=== PATIENT | male | born 1985 | race Caucasian/White ===

== ENCOUNTER 2019-12-24 07:58 | Emergency (ER) | payer SELFPAY ==
[2019-12-24] MEDS ORDERED: LORazepam 2 MG/ML SDV IVPUSH ONE (08:13)
--- NOTE | 2019-12-24 08:18 | EDM.PDOC ---
ED HPI GENERAL MEDICAL PROBLEM - General Chief Complaint: Drug or Alcohol Abuse Stated Complaint: [facility] Time Seen by Provider: 12/24/19 08:05 Source of Information: Reports: Patient History Limitations: Reports: No Limitations - History of Present Illness INITIAL COMMENTS - FREE TEXT/NARRATIVE: 34-year-old male presents to the ED per [facility]. Apparently police were on scene due to his bizarre behavior and activity. It is clear that he is intoxicated by drugs or alcohol or both. There was no a ability to reason with the patient. He was disoriented to time and place. Speaking very fast. Feeling very hot flushed and anxious. Paramedics suggested that he has been taking methamphetamines and possible LSD. There were no track dwyer to suggest intravenous drug abuse. No useful history could be gleaned from the patient due to his severely intoxicated and agitated state. Onset: Unknown/Unsure (Unknown how long he has been partying hard. He would not answer when he last ate.) Onset Date: 12/24/19 (Reported by neighbors to be outside throwing [employer] [place] the city outside [place] home or apartment) Duration: Other (Unknown) Location: Reports: Other (Signs and symptoms of severe intoxication by stimulant hallucinogenic medications.) Quality: Reports: Other (Intoxicated by stimulants) Severity: Severe (.) Improves with: Reports: None Worsens with: Reports: None Context: Reports: Other (Suspect stimulant ingestion). Denies: Activity, Exercise, Lifting, Sick Contact, Trauma Associated Symptoms: Reports: Confusion ( likely methamphetamines.), Diaphoresis. Denies: Chest Pain, Cough, cough w sputum, Malaise, Syncope Treatments [employer] MEMBER: Reports: Other (see below) (Paramedics were not able to establish an IV on him.) - Related Data Allergies Allergy/AdvReac Type Severity Reaction Status Date / Time amoxicillin Allergy Hives Verified 02/23/15 18:20 Past Medical History - History Comment History Comment: Polysubstance abuse.Apparently has a history of Social & Family History - Living Situation & Occupation Living situation: Reports: Single Occupation: Unemployed ED ROS GENERAL - Review of Systems Review Of Systems: See Below Constitutional: Reports: Diaphoresis. Denies: Fever, Chills HEENT: Reports: No Symptoms Respiratory: Reports: No Symptoms Cardiovascular: Reports: No Symptoms Endocrine: Reports: No Symptoms GI/Abdominal: Reports: Anorexia. Denies: Nausea, Vomiting : Reports: No Symptoms Musculoskeletal: Reports: No Symptoms Skin: Reports: Other (Has abrasions and erythema to both knees as if he has been crawling or fell down.) Neurological: Reports: Confusion (Patient is confused and agitated). Denies: Difficulty Walking ( and provides only bits and pieces of information.) Psychiatric: Reports: Agitation, Hallucinations (Severe. Appears to be hallucinating) Hematologic/Lymphatic: Reports: No Symptoms - Physical Exam Exam: See Below Exam Limited By: Other (Temperature is 36.6 although he is hot to touch and diaphoretic. Heart rate 114 and sinus respiratory of 20 with O2 sats of 98% room air BP elevated at 145 119.) General Appearance: Alert, Other (Significantly agitated and confused disoriented to time and place.) Eye Exam: Bilateral Eye: Conjunctival Injection (Mild conjunctival injection bilaterally.), Normal Inspection (Pupils are dilated to 8 mm bilaterally.), PERRL Nose: Normal Inspection Throat/Mouth: Normal Inspection, Normal Lips, Normal Teeth, Normal Oropharynx, Other (Tongue is dry and coated.) Head Exam: Atraumatic, Normocephalic, Other (There are no outward signs of head or facial trauma.) Neck: Normal Inspection, Supple, Non-Tender, Full Range of Motion. No: Lymphadenopathy (L), Lymphadenopathy (R) Respiratory/Chest: Lungs Clear, Normal Breath Sounds (Tachypneic at rest.), No Accessory Muscle Use, Respiratory Distress Cardiovascular: Normal Peripheral Pulses, No Edema, No Gallop, No Murmur, No Rub, Tachycardia (Sinus tachycardia at the bedside.) GI/Abdominal: Soft, Non-Tender (Bowel sounds very quiesced sent.), No Organomegaly, No Mass, Pelvis Stable, Abnormal Bowel Sounds, Other (Mildly obese.) Neuro Exam (Abbreviated): Alert, CN II-XII Intact, Normal Gait, No Motor/Sensory Deficits. No: Oriented, Normal Cognition Back Exam: Normal Inspection, Full Range of Motion, Other (No outward signs of any back thoracic or lumbar spine trauma.) Extremities: Other (Diffuse erythema over both anterior knees as if he has been crawling or on his knees for a lengthy period of time. No ecchymoses.) Psychiatric: Anxious ( and anxious.), Other (Agitated). No: Normal Affect, Normal Mood Skin Exam: Warm, Dry, Intact, Other (Flushed facies.) EKG INTERPRETATION EKG Date: 12/24/19 Time: 09:15 Rhythm: NSR Rate (Beats/Min): 96 [place]: Normal P-Wave: Present (P wave inverted in leads V1 and V2 but no evidence of ectopic atrial arrhythmia.) QRS: Other (There are Q waves in leads V1 and V2 consider old anteroseptal myocardial infarction.) ST-T: Other (Diffuse early repolarization pattern.) QT: Prolonged (Minimally prolonged.) EKG Interpretation Comments: Abnormal ECG. Course - Vital Signs Last Recorded V/S: Last Vital Signs Temp 36.6 C 12/24/19 08:04 Pulse 114 H 12/24/19 08:04 Resp 20 12/24/19 08:04 BP 145/119 H 12/24/19 08:04 Pulse Ox 98 12/24/19 08:04 - Orders/Labs/Meds Orders: Active Orders 24 hr Category Date Time Status DRUG SCREEN, URINE [URCHEM] Stat Lab 12/24/19 08:17 Ordered Labs: Laboratory Tests 12/24/19 12/24/19 12/24/19 Range/Units 08:25 08:25 08:25 WBC 12.20 H (4.23-9.07) K/mm3 RBC 4.87 (4.63-6.08) M/mm3 Hgb 14.4 (13.7-17.5) gm/dl Hct 44.0 (40.1-51.0) % MCV 90.3 (79.0-92.2) fl MCH 29.6 (25.7-32.2) pg MCHC 32.7 (32.2-35.5) g/dl RDW Std Deviation 46.6 H (35.1-43.9) fL Plt Count 166 D (163-337) K/mm3 MPV 10.8 (9.4-12.3) fl Neut % (Auto) 73.2 H (34.0-67.9) % Lymph % (Auto) 14.8 L (21.8-53.1) % [place] % (Auto) 11.0 (5.3-12.2) % Eos % (Auto) 0.5 L (0.8-7.0) Baso % (Auto) 0.3 (0.1-1.2) % Neut # (Auto) 8.93 H (1.78-5.38) K/mm3 Lymph # (Auto) 1.81 (1.32-3.57) K/mm3 [place] # (Auto) 1.34 H (0.30-0.82) K/mm3 Eos # (Auto) 0.06 (0.04-0.54) K/mm3 Baso # (Auto) 0.04 (0.01-0.08) K/mm3 Sodium 137 (136-145) mEq/L Potassium 3.7 (3.5-5.1) mEq/L Chloride 102 (98-107) mEq/L Carbon Dioxide 19 L (21-32) mEq/L Anion Gap 19.7 H (5-15) BUN 20 H (7-18) mg/dL Creatinine 1.1 (0.7-1.3) mg/dL Est Cr Clr Drug Dosing TNP Estimated GFR (MDRD) > 60 (>60) mL/min BUN/Creatinine Ratio 18.2 H (14-18) Glucose 92 (74-106) mg/dL Calcium 8.9 (8.5-10.1) mg/dL Total Bilirubin 1.9 H (0.2-1.0) mg/dL AST 94 H (15-37) U/L ALT 59 (16-63) U/L Alkaline Phosphatase 115 (46-116) U/L Troponin I < 0.017 (0.00-0.056) ng/mL Total Protein 7.8 (6.4-8.2) g/dl Albumin 3.9 (3.4-5.0) g/dl Globulin 3.9 gm/dL Albumin/Globulin Ratio 1.0 (1-2) Ethyl Alcohol 0.00 (0.00) gm% Ketones 1.34 (0.0-0.3) mM Meds: Medications Discontinued Medications Generic Name Dose Route Start Last Admin Trade Name Freq PRN Reason Stop Dose Admin Haloperidol Lactate 5 mg 12/24/19 08:38 12/24/19 08:51 Haldol IVPUSH 12/24/19 08:39 5 mg ONETIME ONE Administration Haloperidol Lactate Confirm 12/24/19 08:36 12/24/19 08:51 Haldol Administered 12/24/19 08:37 Not Given Dose 5 mg .ROUTE .STK-MED ONE Lorazepam 3 mg 12/24/19 08:13 12/24/19 08:50 Ativan IVPUSH 12/24/19 08:14 4 mg ONETIME ONE Administration Lorazepam Confirm 12/24/19 08:37 12/24/19 08:51 Ativan Administered 12/24/19 08:38 Not Given Dose 2 mg .ROUTE .STK-MED ONE Lorazepam 1 mg 12/24/19 09:01 12/24/19 09:10 Ativan IV 12/24/19 09:02 1 mg ONETIME ONE Administration - Radiology Interpretation Free Text/Narrative:: 34-year-old male presents to the ED severely agitated confused and disoriented to person place and time. He apparently admitted to the paramedics that he has been using methamphetamines and perhaps mess Laz and LSD. Police were on sc [place]onal[place] as well. They had to be called back to the hospital to help keep the patient in the room until we could establish an IV. Due to his severe agitated state he was given Ativan 3 mg IV bolus and then Haldol 5 mg IV. It appears that he is under the influence of a stimulant stimulant or multiple stimulants. Plan urine drug screen. Routine labs ECG chest x-ray to be done. - Re-Assessments/Exams Free Text/Narrative Re-Assessment/Exam: 12/24/19 09:12 Patient remains very mildly agitated. Will repeat Ativan 1 mg IV at this time. He will likely need a catheterized urine specimen to obtain a urine sample for analysis. 12/24/19 09:24 White count is 12.20 with a reported 73% neutrophils on the auto differential. He hemoglobin is 14.4 with hematocrit of 44.0 platelet count is 166,000. Sodium 137 potassium 3.7 chloride 102 with a bicarb of 19. Anion gap is markedly elevated at 19.7. BUN is 20 with a creatinine of 1.1. Glucose is 92. Calcium is 8.9. Total bilirubin is 1.9. AST is 94 with an ALT of 59. Troponin I is less than 0.017. Total protein 7.8 with an albumin fraction of 3.9. Blood alcohol is 0.00 serum ketones elevated at 1.34. 12/24/19 13:19 10 wakens easily when disturbed but otherwise he has been sleeping quietly in the ED. He has not yet provided a urine for urinalysis or urine drug screen. 12/24/19 17:29 Patient is now alert and requesting to be discharged. He never did provide a urine sample for urine drug screen analysis to identify which stimulant he had taken. Suspect methamphetamine by the way he was acting. We have attempted to contact numerous people that might be able to look after Mr. La but his ex- does not want anything to do with him and indicates they have been since October. Apparently he is living with some other woman in a drug house. Police indicate that there is no indication to place him in penitentiary at this time although I feel it may be prudent for his own safety. 12/24/19 18:50: Patient is now alert enough to make appropriate decisions for himself. He was given money for taxi and has a suitable place stay tonight. Departure - Departure Time of Disposition: 18:50 Disposition: Home, Self-Care 01 Condition: Fair Clinical Impression: Methamphetamine use - Discharge Information *PRESCRIPTION DRUG MONITORING PROGRAM REVIEWED*: Not Applicable *COPY OF PRESCRIPTION DRUG MONITORING REPORT IN PATIENT SHELLY: Not Applicable Instructions: Stimulant Use Disorder-Amphetamines Forms: ED Department Discharge Additional Instructions: Evaluation in the emergency room today in regards to being brought to the emergency room due to severe intoxication by drugs. You were out throwing s tones in the street when the police picked you up. You were transferred to the hospital per [facility]. You were found to be highly intoxicated by some form of stimulant medication suspect methamphetamines. You were treated with intravenous medications and fluids to provide rehydration and to bring your symptoms under control. You were able to sleep most of the day until the stimulant effect wore off. You indicated that you had taken the stimulants approximately 7 hours prior to being seen in the ED but this remains in question. Strongly suggest no further use of similar stimulants as it can induce a heart attack and/or stroke causing . If you think you need help to stop using drugs please call [facility] services at [phone]. Sepsis Event Note (ED) - Focused Exam Vital Signs: Vital Signs Temp Pulse Resp BP Pulse Ox 12/24/19 08:04 36.6 C 114 H 20 145/119 H 98 - My Orders Last 24 Hours: My Active Orders 12/24/19 08:17 DRUG SCREEN, URINE [URCHEM] Stat - Assessment/Plan Last 24 Hours: My Active Orders 12/24/19 08:17 DRUG SCREEN, URINE [URCHEM] Stat
[2019-12-24 08:21] VITALS: BP 145/119; PULSE 114
[2019-12-24] MEDS ORDERED: Haloperidol Lactate 5 MG/ML SDV ONE (08:36)
[2019-12-24] MEDS ORDERED: LORazepam 2 MG/ML SDV ONE (08:37)
[2019-12-24] MEDS ORDERED: Haloperidol Lactate 5 MG/ML SDV IVPUSH ONE (08:38)
[2019-12-24] MEDS ORDERED: LORazepam 2 MG/ML SDV IV ONE (09:01)
== END 2019-12-24 19:00 | disposition home or self-care (01) ==
LOC: JD.ED 07:58
DX: F15.929 Other stimulant use, unspecified with intoxication, unspecified (principal); E66.9 Obesity, unspecified; Z88.1 Allergy status to other antibiotic agents
CPT/HCPCS: 36415; 80053; 80307; 82009; 84484; 85025; 93005; 96374; 96375; 96376; 99284; J1630; J2060; 93010